=== PATIENT | male | born 1970 | race American Indian/Alaskan Native ===

== ENCOUNTER 2017-04-15 09:00 | Emergency (ER) | payer OTHER ==
--- NOTE | 2017-04-15 09:04 | Emergency Department Report ---
Upper Extremity - HPI Chief Complaint: Extremity Injury, Upper Stated Complaint: DISLOCATED FINGER Time Seen by Provider: 04/15/17 09:02 Upper Extremity: Left Little Finger (pain, swelling, deformity after injury.) Occurred When: Today Mechanism: Fall Severity: severe (8 out of 10) Symptoms: Yes Pain with Movement (left small finger), Yes Deformity (small finger), Yes Limited Range of Movement (left small finger), No Numbness, No Weakness, No Swelling, No Bruising/Ecchymosis, No Laceration or Abrasion Other History: Patient here reports that he was chasing after psych patient and he fell and hit is left small finger: Swollen and deformed. Patient is a employee at this hospital. Denies any other injury. He reports left small finger is 10 out of 10 and throbbing. Denies any nausea or vomiting. Denies any neck pain or back pain. Denies any headache. Past medical history of testicular cancer. He denies any numbness or tingling to extremities. No medication taken after injury. Pain is better at rest and worse with movement. ED Review of Systems ROS: Stated complaint: DISLOCATED FINGER Other details as noted in HPI Comment: All other systems reviewed and negative Constitutional: no symptoms reported Respiratory: no symptoms reported Cardiovascular: denies: chest pain, palpitations, edema, syncope Gastrointestinal: denies: nausea, vomiting Musculoskeletal: arthralgia. denies: back pain, joint swelling, myalgia Skin: denies: rash Neurological: denies: weakness, numbness, paresthesias ED Past Medical Hx - Past Medical History Previous Medical History?: No - Surgical History Past Surgical History?: No - Family History Family history: no significant - Social History Smoking Status: Never Smoker Substance Use Type: None - Medications Home Medications: Home Medications Medication Instructions Recorded Confirmed Last Taken Type Mupirocin [Bactroban 2% CREAM] 1 applicatio TP TID #1 tube 05/17/15 Unknown Rx Sulfamethoxazole/Trimethoprim 1 each PO BID #20 tablet 05/17/15 Unknown Rx [Bactrim DS TAB] Ibuprofen [Motrin 800 MG tab] 800 mg PO Q8HR PRN #15 tablet 04/15/17 Unknown Rx Upper Extremity Exam - Exam General: Vital signs noted. No distress. Alert and acting appropriately. This is a 46-year-old male well-nourished well-developed in no acute distress. Head and Torso: No HEENT Abnormality, No Neck Tenderness, No Chest/Lungs Abnormality, No Abdominal Tenderness, No Back Tenderness Shoulder Exam: No Shoulder Tenderness, No Clavicle Tenderness, No Normal Range of Motion in Shoulder, No Shoulder Deformity, No AC Joint Tenderness Arm Exam: No Arm/Humerus Tenderness, No Arm Deformity Elbow: No Elbow Tenderness, No Normal Range of Motion in Elbow, No Elbow Deformity Forearm: No Forearm Tenderness, No Forearm Deformity, No Pain with Pronation, No Pain with Supination Wrist: Yes Normal ROM in Wrist, No Wrist Tenderness, No Wrist Deformity, No Snuffbox Tenderness, No Pain with Axial Thumb Compression Hand: Yes Digit Tenderness (left 5th digit distally), Yes Normal ROM in Digit(s ) (left 5th digit distally), Yes Digit(s) Deformity (left 5th digit distally), No Hand Tenderness, No Hand Deformity, No Tendon Dysfunction CMS Exam: Yes Normal Distal Pulses, Yes Normal Capillary Refill, Yes Normal Distal Sensation, No Broken Skin ED Course Vital Signs 04/15/17 04/15/17 04/15/17 09:01 09:10 09:23 Temperature 97.8 F 97.8 F Pulse Rate 110 H 110 H Respiratory 18 18 18 Rate Blood Pressure 130/71 Blood Pressure 130/71 130/71 [Right] O2 Sat by Pulse 97 97 97 Oximetry 04/15/17 10:12 Temperature Pulse Rate 82 Respiratory Rate Blood Pressure Blood Pressure [Right] O2 Sat by Pulse Oximetry - Reevaluation(s) Reevaluation #1: 04/15/17 09:34 Patient given Motrin 800 mg by mouth in emergency room which helped his left fifth digit pain. The patient has dislocation to distal left interphalangeal joint Reevaluation #2: 04/15/17 10:30 Postreduction x-ray to left fifth digit showed patient with satisfactory reduction. A procedure note for splint placement - Nerve Block Consent Obtained: verbal consent Time Out Performed: Yes Local Anesthetic Used: Marcaine 0.5% Amount of anesthesia used: 3 Side: left (fifth digit) Nerve Blocks: digital Procedure Successful: Yes Complications: none Patient Tolerated Procedure: well - Orthopedic Fracture Reduction Fracture #1 Consent Obtained: verbal consent Time Out Performed: Yes Side: left (fifth digit distally) Fracture Reduction Location: finger (left fifth digit distally) Analgesia: digital block Technique: direct manipulation Post Reduction X-rays Demonstrate: acceptable reduction Post-Reduction Neuro Exam: intact Post-Reduction Vascular Exam: intact Splint Applied: Yes (medical finger splint applied.) Patient Tolerated Procedure: well Additional Comments: Post reduction x-ray revealed satisfactory reduction. - Orthopedic Splinting/Casting Injury #1 Side: left (fifth digit) Upper Extremity Injury Location: finger Upper Extremity Immobilizer: aluminum form splint ED Medical Decision Making - Radiology Data Radiology results: report reviewed X-ray of the left fifth digit revealed patient with dislocation to left fifth digit into interphalangeal joint distally Post reduction x-ray to left fifth digit showed successful reduction. - Medical Decision Making ED course: Patient here complaining of left fifth digit pain after accidentally injuring his left fifth digit. Patient found to have a dislocation of his left fifth digit distally via x-ray. Patient had digital block using 0.5% Marcaine 3 cc. Left fifth digit dislocation reduced and metal finger splint placed the site. His reduction x-ray to left fifth digit showed successful reduction. She given Motrin 800 mg by mouth in emergency room prior to procedure and he tolerated procedure well. See procedure note for further details. Patient informed on diagnosis and treatment plan and that he will need to follow up with orthopedic doctor in 3 days for management. He is aware of PRE and post x- ray results. Patient discharged from the emergency room with prescription for Motrin. Critical care attestation.: If time is entered above; I have spent that time in minutes in the direct care of this critically ill patient, excluding procedure time. ED Disposition Clinical Impression: Finger pain, left Injury of left little finger Qualifiers: Encounter type: initial encounter Qualified Code(s): S69.92XA - Unspecified injury of left wrist, hand and finger(s), initial encounter Dislocation of left little finger Qualifiers: Encounter type: initial encounter Qualified Code(s): S63.257A - Unspecified dislocation of left little finger, initial encounter Disposition: TO HOME OR SELFCARE Is pt being admited?: No Does the pt Need Aspirin: No Condition: Stable Instructions: Finger Dislocation (ED), Arthralgia (ED), Splint Care (ED), RICE Therapy (ED) Additional Instructions: please increase her fluid intake. Follow-up with orthopedic doctor as instructed Please follow rice protocol Please follow discharge instructions on splint care P Prescriptions: Ibuprofen [Motrin 800 MG tab] 800 mg PO Q8HR PRN #15 tablet PRN Reason: Pain Referrals: PRIMARY CARE, [Primary Care Provider] - 3-5 Days FREDY PARNLEL MD [Staff Physician] - 04/18/17 Forms: Work/School Release Form(ED)
[2017-04-15] MEDS ORDERED: MOTRIN ONE (09:09)
[2017-04-15] MEDS ORDERED: MOTRIN PO ONE (09:11)
[2017-04-15] MEDS ORDERED: MARCAINE 0.5% INFILTRATI ONE (09:11)
[2017-04-15 09:23] VITALS: BP 130/71
--- NOTE | 2017-04-15 09:34 | XRay Report ---
LEFT FINGERS, 3 VIEWS History: Pain, deformity. Findings: An anterior dislocation is identified at the distal interphalangeal joint of the fifth digit. No associated fracture is appreciated. The remaining bony structures and joint spaces are within normal limits. Normal soft tissues. Impression: Dislocation, distal interphalangeal joint, fifth digit.
--- NOTE | 2017-04-15 10:32 | XRay Report ---
LEFT FINGER RADIOGRAPHS INDICATION: Left finger post reduction. COMPARISON: 9:22 AM earlier today. FINDINGS: AP and lateral views of likely the left fifth digit, 10:16 AM, 04/15/2017 now demonstrate intact bony articulation and appearance. Soft tissue swelling though suspected. Some extrinsic artifacts. CONCLUSION: Satisfactory interval reduction of dislocated left fifth DIP joint, as described. Thank you for the opportunity to participate in this patient's care.
== END 2017-04-15 14:03 | disposition home or self-care (01) ==
LOC: ED 09:00
DX: S63.297A Dislocation of distal interphalangeal joint of left little finger, initial encounter (principal); W01.198A Fall on same level from slipping, tripping and stumbling with subsequent striking against other object, initial encounter; Y93.89 Activity, other specified; Y92.89 Other specified places as the place of occurrence of the external cause; Y99.8 Other external cause status